=== PATIENT | female | born 1975 | race Caucasian/White ===

== ENCOUNTER 2021-05-19 23:13 | Emergency (ER) | payer OTHER ==
[~2021-05-19 23:13] MED LIST: CLINDAMYCIN HC150 MG PO; COLACE 100MG C100 MG PO; FERROUS SULFAT325 M2 PO; HYDROCHLOROTH12.5 M1 PO; IBUPROFEN600 MG PO; LEVAQUIN750 MG PO; LORTAB 5-325 M1 EACH PO; LOSARTAN POTASS50 MG PO; NEURONTIN 400400 MG PO; OYSTER SHELL 51 EAC2 PO; PROPRANOLOL HCL60 MG PO; QUETIAPINE FUMA50 MG PO; THERAGRAN M TAB1 EA PO; TRIAMCINOLONE MC; VISTARIL50 MG PO; ZOFRAN4 MG PO; ZOLOFT50 MG PO
[2021-05-20 01:04] LABS: HEMOGLOBIN 11.4 gm/dl (12.3-15.3); RED BLOOD COUNT 4.14 M/UL (4.00-5.10); WHITE BLOOD COUNT 5.2 K/UL (4.5-11.0)
[2021-05-20 01:19] LABS: BUN/CREATININE RATIO 22 (0-10)
[2021-05-20] MEDS ORDERED: AUGMENTIN 875-1 EACH PO (02:08)
== END 2021-05-20 02:40 | disposition home or self-care (01) ==
LOC: ER1 23:13
PROVIDERS: Physician Assistant
DX: K02.9 Dental caries, unspecified (principal); N39.0 Urinary tract infection, site not specified; M54.2 Cervicalgia; F17.210 Nicotine dependence, cigarettes, uncomplicated
CPT/HCPCS: 72129; 72132; 80053; 81001; 83605; 83735; 84100; 85025; 85610; 85652; 86140; 87040; 87077; 87086; 87186; 96374; 99284; J0696; Q9967